=== PATIENT | female | born 1960 | race Caucasian/White ===

== ENCOUNTER 2018-08-31 17:00 | Inpatient (IN) | payer OTHER, MEDICAID ==
[~2018-08-31] VITALS: Ht 162.6 cm; Wt 57.2 kg
[2018-08-31] MEDS ORDERED: SODIUM CHLORIDE 0.9% 1,000 ML IV ONE (17:51)
[2018-08-31] MEDS ORDERED: ONDANSETRON HCL 4MG/2ML INJ IV STA (17:51)
[2018-08-31 18:20] LABS: BASOPHILS % 0.6 % (0.0-2.0); EOSINOPHILS % 1.9 % (0.0-5.0); HEMATOCRIT. 36.6 % (36.0-48.0); HEMOGLOBIN. 12.6 g/dL (12.0-16.0); LYMPHOCYTES % 37.7 % (20.0-50.0); MEAN CORPUSCULAR HEMOGLOBIN 29.1 pg (28.0-32.0); MEAN CORPUSCULAR VOLUME 84.5 fL (81.0-99.0); MEAN PLATELET VOLUME 9.1 fl (7.4-10.4); MONOCYTES % 9.5 % (2.0-8.0); NEUTROPHILS % 50.3 % (40.0-76.0); PLATELET 319 x1000/uL (130-400); RED BLOOD CELL COUNT 4.33 mill/uL (4.2-5.4)
[2018-08-31 18:25] LABS: INR 1.1; PROTHROMBIN TIME 11.4 sec (9.1-11.1)
[2018-08-31 18:26] LABS: CHLORIDE 92 mEq/L (98-107)
[2018-08-31] MEDS ORDERED: POTASSIUM CHLORIDE INJ 40 MEQ in DEXT 5% WATER 500 ML IV ONE (19:00)
[2018-08-31 19:20] LABS: CLARITY URINE CLEAR (CLEAR); COLOR URINE YELLOW (YELLOW); KETONES URINE NEGATIVE (NEGATIVE); LEUKOCYTE ESTERASE URINE 2+ (NEGATIVE); NITRITE URINE NEGATIVE (NEGATIVE); OCCULT BLOOD URINE NEGATIVE (NEGATIVE); PH URINE 6.5 (4.5-8.0); PROTEIN URINE 1+ (NEGATIVE); SPECIFIC GRAVITY URINE 1.015 (1.005-1.030); UROBILINOGEN URINE 0.2 E.U./dL (0.2-1.0)
[2018-08-31] MEDS ORDERED: DOCUSATE SODIUM 100MG CAPSULE PO PRN (21:00)
[2018-08-31] MEDS ORDERED: KCL 20MEQ/100ML PREMIX 100 ML IV NR (21:00)
[2018-08-31] MEDS ORDERED: CLONIDINE 0.1MG TABLET PO PRN (21:00)
[2018-08-31] MEDS ORDERED: NITROGLYCERIN 0.4MG TABLET SL SL PRN (21:00)
[2018-08-31] MEDS ORDERED: MAGNESIUM/ALUMINUM HYDROXIDE/SIMETHICONE 30ML UDC PO PRN (21:00)
[2018-08-31] MEDS ORDERED: ACETAMINOPHEN 325MG TABLET PO PRN (21:00)
[2018-08-31] MEDS ORDERED: ONDANSETRON HCL 4MG/2ML INJ IV PRN (21:00)
[2018-08-31] MEDS ORDERED: IPRATROPIUM/ALBUTEROL 0.5-3(2.5)MG/3ML NEB INH PRN (21:00)
[2018-08-31] MEDS ORDERED: GUAIFENESIN 200MG/10ML SUGAR FREE UDC PO PRN (21:00)
[2018-08-31] MEDS ORDERED: ZOLPIDEM TARTRATE 5MG TABLET PO PRN (21:00)
[2018-08-31 21:04] LABS: ETHANOL BLOOD < 10 mg/dL
[2018-08-31] MEDS: KETOROLAC 15MG/ML VIAL IV PRN (21:51)
[2018-08-31 23:16] VITALS: BP 129/56
[2018-08-31 23:20] VITALS: BP 129/56
[2018-08-31] MEDS: ENOXAPARIN 40MG/0.4ML SYR SUBCUT SCH (23:49)
[2018-08-31] MEDS: FAMOTIDINE 20MG TABLET PO SCH (23:49)
[2018-09-01 00:45] LABS: CREATINE KINASE 104 IU/L (26-192); CREATINE KINASE MB FRACTION 1.6 ng/mL (0.5-3.6)
[2018-09-01] MEDS ORDERED: MVI, ADULT NO.1 10 ML, FOLIC ACID 1 MG, THIAMINE HCL 100 MG in SODIUM CHLORIDE 0.9% 1,0... IV NR ×4 (01:00)
[2018-09-01] MEDS: CEFTRIAXONE 1 G PREMIX 50 ML IV SCH ×2 (01:07→21:27)
[2018-09-01 04:00] VITALS: BP 113/60
[2018-09-01 07:52] LABS: CREATINE KINASE 89 IU/L (26-192); CREATINE KINASE MB FRACTION < 1.0 ng/mL (0.5-3.6)
[2018-09-01 08:00] VITALS: BP 134/62
[2018-09-01] MEDS: POTASSIUM CHLORIDE 20MEQ TABLET SR PO SCH (09:11)
[2018-09-01] MEDS: FAMOTIDINE 20MG TABLET PO SCH ×2 (09:11→20:43)
[2018-09-01 11:17] LABS: HEMATOCRIT 30.9 % (36.0-48.0); HEMOGLOBIN 10.8 g/dL (12.0-16.0); MEAN CORPUSCULAR VOLUME 85.5 fL (81.0-99.0); PLATELET 306 x1000/uL (130-400); RED BLOOD CELL COUNT 3.61 mill/uL (4.2-5.4); RED CELL DISTRIBUTION WIDTH 14.2 % (11.6-14.6)
[2018-09-01 11:20] LABS: CHLORIDE 104 mEq/L (98-107)
[2018-09-01 12:00] VITALS: BP 127/57
[2018-09-01] MEDS ORDERED: POTASSIUM CHLORIDE 20MEQ/PACKET PO NR (12:30)
[2018-09-01 16:00] VITALS: BP 117/61
[2018-09-01] MEDS: KETOROLAC 15MG/ML VIAL IV PRN (19:47)
[2018-09-01 20:01] VITALS: BP 129/59
[2018-09-01] MEDS: ENOXAPARIN 40MG/0.4ML SYR SUBCUT SCH (20:43)
[2018-09-01 23:47] VITALS: BP 122/68
[2018-09-02 04:00] VITALS: BP 126/70
[2018-09-02 08:00] VITALS: BP 124/60
[2018-09-02] MEDS: POTASSIUM CHLORIDE 20MEQ TABLET SR PO SCH (08:20)
[2018-09-02] MEDS: FAMOTIDINE 20MG TABLET PO SCH (08:20)
[2018-09-02 10:28] VITALS: BP 124/60
== END 2018-09-02 12:42 | disposition home or self-care (01) | DRG 241 ==
LOC: ER 17:00 → 7WST 20:37 → ENRESERV 21:10
PROVIDERS: ADMIT Internal Medicine; ATTEND Internal Medicine
DX: K29.70 Gastritis, unspecified, without bleeding (principal); E87.1 Hypo-osmolality and hyponatremia; R55 Syncope and collapse; E87.6 Hypokalemia; R73.03 Prediabetes; N39.0 Urinary tract infection, site not specified; I10 Essential (primary) hypertension; E78.00 Pure hypercholesterolemia, unspecified; F41.9 Anxiety disorder, unspecified
CPT/HCPCS: 36415; 80048; 82550; 82553; 83036; 83735; 84484; 85027; 93005; 93970; 96365; 96375; 96376; 99285; G0482; J0696; J1650; J1885; J2405; J3411; J3480; J3490; J7030; J7050; J7060